=== PATIENT | female | born 1950 | race Caucasian/White ===

== ENCOUNTER → 2017-01-12 | Outpatient (CLI) | payer MEDICARE, OTHER ==
--- NOTE | 2017-01-12 14:38 | RAD ---
DATE: January 12, 2017 EXAM: MAMMO ANABELLE SCREENING BILATERAL HISTORY: Routine screening. COMPARISON: January 06, 2016. January 02, 2015. August 03, 2013. TECHNIQUE: 2D digital CC and MLO views were obtained. 3D tomosynthesis imaging was performed in the CC and MLO projections. This study was interpreted with the benefit of Computerized Aided Detection (CAD). FINDINGS: The breast parenchyma demonstrates scattered fibroglandular densities, category B. There is no worrisome mass or area of architectural distortion. There are a few benign-appearing calcifications, stable. IMPRESSION: Stable mammogram with benign findings. BI-RADS CATEGORY: 2 BENIGN FINDING RECOMMENDED FOLLOW-UP: 12M 12 MONTH FOLLOW-UP PQRS compliance statement: Patient information was entered into a reminder system with a target due date of January 12, 2018 for the next mammogram. Mammography is a sensitive method for finding small breast cancers, but it does not detect them all and is not a substitute for careful clinical examination. A negative mammogram does not negate a clinically suspicious finding and should not result in delay in biopsying a clinically suspicious abnormality. "Our facility is accredited by the [employer] Mammography [employer]."
== END | disposition home or self-care (01) ==
LOC: MAMMO 11:24
PROVIDERS: ATTEND Physician Assistant Medical
DX: Z12.31 Encounter for screening mammogram for malignant neoplasm of breast (principal)
CPT/HCPCS: 77063; G0202; 77067

== ENCOUNTER → 2018-01-25 | Outpatient (CLI) | payer MEDICARE, OTHER ==
--- NOTE | 2018-01-25 13:07 | RAD ---
DATE: 01/25/2018 EXAM: DIGITAL SCREEN BILAT W/CAD HISTORY: Routine Screening COMPARISON: Previous mammogram from 2017 and 2016. This study was interpreted with the benefit of Computerized Aided Detection (CAD). FINDINGS: Breast Density: SCATTERED The breast parenchyma shows scattered fibroglandular densities. Breast parenchyma level B. The skin and nipples are within normal limits. No suspicious calcifications, spiculated mass or area of architectural distortion. Benign left breast calcifications. IMPRESSION: No mammographic evidence of malignancy. Stable mammogram. BI-RADS CATEGORY: 2 BENIGN FINDING(S) RECOMMENDED FOLLOW-UP: 12M 12 MONTH FOLLOW-UP PQRS compliance statement: Patient information was entered into a reminder system with a target due date for the next mammogram. Mammography is a sensitive method for finding small breast cancers, but it does not detect them all and is not a substitute for careful clinical examination. A negative mammogram does not negate a clinically suspicious finding and should not result in delay in biopsying a clinically suspicious abnormality. "Our facility is accredited by the [employer] Mammography [employer]."
== END | disposition home or self-care (01) ==
LOC: MAMMO 11:03
PROVIDERS: ATTEND Physician Assistant Medical
DX: Z12.31 Encounter for screening mammogram for malignant neoplasm of breast (principal)
CPT/HCPCS: 77067

== ENCOUNTER → 2018-02-14 | Outpatient (CLI) | payer MEDICARE ==
--- NOTE | 2018-02-14 14:41 | RAD ---
MR#: [id number] Date of Study: 02/14/2018 Ordering Physician: SUHAIL HOYOS, Referring Physician: SUHAIL HOYOS Tech: Daria Costa RDMS, RVT, RTR APPROVED REPORT Patient Location: OUT-PATIENT Indications Grayscale images of the right common carotid, external carotid vessels reveal no significant obstruct yanira plaque. At the level of the ostium of the internal carotid artery/distal bulb on the right side t here is a greater than 50% stenosis identified on grayscale images. This appears to be a soft plaque. Spectral waveforms in the right common carotid and external carotid vessels are grossly within leslie l limits. Spectral waveforms and velocities in the proximal right internal carotid artery are signifi cantly elevated at 418 cm/s with turbulence noted. The ICA to CCA ratio is significantly elevated at 6.6. The right vertebral velocity is antegrade in nature and within normal limits. On the left the common carotid, internal and external carotid grayscale images do not reveal any sign ificant obstructive plaque. Spectral waveforms, velocities are grossly within normal limits. The vert ebral velocities are antegrade. Normal ICA to CCA ratios are noted on the left side. Critical Notification Critical Value: No <Conclusion> 1. Greater than 70% right ICA stenosis by ultrasound criteria. Signed by : Bryan Kidd, Electronically Approved : 02/14/2018 14:40:26
== END | disposition home or self-care (01) ==
LOC: US 09:50
PROVIDERS: ATTEND Internal Medicine Cardiovascular Disease
DX: I65.21 Occlusion and stenosis of right carotid artery (principal)
CPT/HCPCS: 93880

== ENCOUNTER → 2018-02-21 | Outpatient (CLI) | payer MEDICARE ==
[~2018-02-21] MED LIST: IOHEXOL 300 MG/ML 75 ML VIAL. IV ONE
[2018-02-21 09:32] LABS: CREATININE 0.7 mg/dL (0.6-1.0); GFR 83.2
--- NOTE | 2018-02-21 13:08 | CARD ---
MR#: [id number] Date of Study: 02/21/2018 Ordering Physician: SUHAIL HOUGH, Referring Physician: SUHAIL HOUGH, Tech: ZULY Gilliam APPROVED REPORT EXAM: Two-dimensional and M-mode echocardiogram with Doppler and color Doppler. Other Information Quality : Fair INDICATION Carotid Stenosis 2D DIMENSIONS Left Atrium(2D)3.0 (1.6-4.0cm)IVSd0.7 (0.7-1.1cm) Aortic Root(2D)3.2 (2.0-3.7cm)LVDd4.4 (3.9-5.9cm) LVOT Diameter2.1 (1.8-2.4cm)PWd0.7 (0.7-1.1cm) LVDs2.7 (2.5-4.0cm)FS (%) 32.0 % SV61.8 mlLVEF(%)65.0 (>50%) Aortic Valve AoV Peak Dimitrios.124.9cm/Edith Peak GR.6.2mmHg LVOT Peak Dimitrios.84.0cm/sAVA (VMAX)2.28cm2 Mitral Valve MV E Lyypnavj82.2cm/sMV DECEL ZWVY429dd MV A Ubuhfmkf167.9cm/sE/A Ratio0.5 LEFT VENTRICLE The left ventricle is normal size. There is normal left ventricular wall thickness. The left ventricu lar systolic function is normal. The Ejection Fraction is 60-65%. There is normal LV segmental wall m otion. RIGHT VENTRICLE The right ventricle is normal size. There is normal right ventricular wall thickness. The right ventr icular systolic function is normal. ATRIA The left atrium size is normal. The right atrium size is normal. The interatrial septum is intact wit h no evidence for an atrial septal defect or patent foramen ovale as noted on 2-D or Doppler imaging. AORTIC VALVE The aortic valve is trileaflet. Doppler and Color Flow revealed no significant aortic regurgitation. There is no significant aortic valvular stenosis. MITRAL VALVE There is no evidence of mitral valve prolapse. There is no mitral valve stenosis. Doppler and Color-f low revealed trace mitral regurgitation. TRICUSPID VALVE Doppler and Color Flow revealed trace tricuspid regurgitation. There is no tricuspid valve stenosis. PULMONIC VALVE The pulmonic valve is not well visualized. Doppler and Color Flow revealed trace pulmonic valvular re gurgitation. There is no pulmonic valvular stenosis. GREAT VESSELS The aortic root is normal in size. The IVC is normal in size and collapses >50% with inspiration. PERICARDIAL EFFUSION There is no pleural effusion. There is no evidence of significant pericardial effusion. Critical Notification Critical Value: No <Conclusion> The left ventricular systolic function is normal. The Ejection Fraction is 60-65%. There is normal LV segmental wall motion. Trace mitral regurgitation. Trace tricuspid regurgitation. There is no evidence of significant pericardial effusion. Signed by : Suhail Hough, Electronically Approved : 02/21/2018 13:07:43
--- NOTE | 2018-02-21 17:41 | RAD ---
CTA of the neck with contrast 02/21/2018 Clinical history: Right carotid stenosis. Technique: After the intravenous administration 75 cc of Omnipaque 300, contiguous, 0.625 mm axial sections were obtained through the upper chest and neck. Multiplanar 3-D MIP and volume rendered 3-D reconstructed images were obtained. One or more of the following individualized dose reduction techniques were utilized for this study: 1. Automated exposure control. 2. Adjustment of the mA and/or kV according to patient size. 3. Use of iterative reconstruction technique. Findings: Comparison is made to the patient's carotid ultrasound dated 02/14/2018. Mild to moderate scattered atherosclerotic plaque formation is seen involving the thoracic aortic arch and its branches. There is a common origin of the brachiocephalic and left common carotid artery. This is a normal variation. This origin is patent. The origin of the left subclavian artery from the thoracic aortic arch is patent. The origins of the right common carotid artery and both vertebral arteries are patent. Mild to moderate atheromatous/atherosclerotic plaque formation is seen involving both carotid bifurcations and proximal internal carotid arteries, right greater than left. A high-grade stenosis which is estimated to be at least 90 percent using NASCET criteria is seen involving the origin of the right internal carotid artery. This measures 6 mm in length. No hemodynamically significant stenosis is seen involving the left carotid bifurcation. The left internal carotid artery is tortuous. No hemodynamically significant stenosis is seen. The vertebral arteries are codominant. Both vertebral arteries demonstrate normal antegrade flow. No area stenosis or occlusion is seen. No acute soft tissue abnormality is seen involving the neck. Mild mucosal thickening is involving left maxillary sinus. Degenerative changes are seen involving the uncovertebral and facet joints throughout the cervical spine. IMPRESSION: Mild to moderate atheromatous/atherosclerotic plaque formation is seen involving both carotid bifurcations. A 90 percent stenosis is seen involving the proximal right internal carotid artery at its origin. No additional area of stenosis or occlusion is seen. Stenosis calculation for CTA are based on measurement of the distal internal carotid artery diameter in accordance with the NASCET methodology. Electronically signed by: Vincent Dang MD (02/21/2018 5:37 PM) [id number]
== END | disposition home or self-care (01) ==
LOC: ECHO 07:55
PROVIDERS: ATTEND Internal Medicine Cardiovascular Disease
DX: I65.21 Occlusion and stenosis of right carotid artery (principal)
CPT/HCPCS: 36415; 70498; 82565; 93306; Q9967

== ENCOUNTER → 2018-06-23 | Outpatient (CLI) | payer MEDICARE ==
[2018-06-23 09:40] LABS: ALBUMIN 3.8 g/dL (3.4-5.0); CALCIUM 9.3 mg/dL (8.5-10.1); CREATININE 0.7 mg/dL (0.6-1.0); GFR 83.2; POTASSIUM 4.4 mmol/L (3.5-5.1); TOTAL BILIRUBIN 0.4 mg/dL (0.2-1.0); TOTAL PROTEIN 7.6 g/dL (6.4-8.2)
--- NOTE | 2018-06-23 14:22 | RAD ---
EXAM: Dual energy x-ray absorptiometry (DEXA). HISTORY: Postmenopausal female presents for osteoporosis screening. COMPARISON: 02/25/2004. TECHNIQUE: Dual energy x-ray absorptiometry of the lumbar spine and right hip was performed. Calculation of bone mineral density based on standard deviations above or below the expected young adult normal value (T-score) was completed. FINDINGS: The average bone mineral density in the 1st through 4th lumbar vertebrae is 1.094 g/cmxcm, corresponding with a T-score of -0.7. There has been a 6.8 percent decrease in density of the lumbar spine compared to the baseline exam dated 02/25/2004. The average total bone mineral density in the right hip is 0.990 g/cmxcm, corresponding with a T-score of 0.3. There has been a 2.0 percent decrease in density of the right hip compared to the baseline study dated 02/25/2004. IMPRESSION: Normal bone mineral density. Note: Definitions established by the World Health Organization: 1. Normal: T-score is -1.0 or above. 2. Osteopenia: T-score is between -1.0 and -2.5 . 3. Osteoporosis: T-score is -2.5 or below. Electronically signed by: Yamilka Curran MD (06/23/2018 2:19 PM) [facility]
== END | disposition home or self-care (01) ==
LOC: DXRAD 08:14
PROVIDERS: ATTEND Physician Assistant Medical
DX: Z13.820 Encounter for screening for osteoporosis (principal); E78.4 Other hyperlipidemia; I10 Essential (primary) hypertension; Z78.0 Asymptomatic menopausal state
CPT/HCPCS: 36415; 77080; 80053; 80061

== ENCOUNTER → 2019-02-08 | Outpatient (CLI) | payer MEDICARE ==
--- NOTE | 2019-02-08 12:54 | RAD ---
DATE: 02/08/2019 EXAM: MAMMO ANABELLE SCREENING BILATERAL HISTORY: Routine screening COMPARISON: 01/02/2015, 01/06/2016, 01/25/2018 mammographic exams This study was interpreted with the benefit of Computerized Aided Detection (CAD). Breast Density: HETERO The breast parenchyma is heterogenously dense, which could reduce sensitivity of mammography. Breast parenchyma level C. FINDINGS: Benign axillary lymph nodes are present. Benign calcifications are present. No dominant mass or distortion. IMPRESSION: No suspicious change. BI-RADS CATEGORY: 1 NEGATIVE RECOMMENDED FOLLOW-UP: 12M 12 MONTH FOLLOW-UP PQRS compliance statement: Patient information was entered into a reminder system with a target due date in 1 year for the next mammogram. Mammography is a sensitive method for finding small breast cancers, but it does not detect them all and is not a substitute for careful clinical examination. A negative mammogram does not negate a clinically suspicious finding and should not result in delay in biopsying a clinically suspicious abnormality. "Our facility is accredited by the [employer] Mammography [employer]."
== END | disposition home or self-care (01) ==
LOC: MAMMO 10:43
PROVIDERS: ATTEND Physician Assistant Medical
DX: Z12.31 Encounter for screening mammogram for malignant neoplasm of breast (principal); R92.8 Other abnormal and inconclusive findings on diagnostic imaging of breast
CPT/HCPCS: 77063; 77067

== ENCOUNTER → 2020-10-21 | Outpatient (CLI) | payer MEDICARE ==
--- NOTE | 2020-10-22 13:06 | RAD ---
DATE: 10/21/2020 10:50 AM EXAM: MAMMO ANABELLE SCREENING BILATERAL HISTORY: Screening COMPARISON: 02/08/2019 Bilateral CC and MLO views of the breasts were performed. Bilateral breast tomosynthesis was performed in CC and MLO projections. This study was interpreted with the benefit of Computerized Aided Detection (CAD). FINDINGS: Breast Density: HETERO The breast parenchyma Is heterogeneously dense, which could reduce sensitivity of mammography. Breast parenchyma level C No suspicious masses, microcalcifications or architectural distortion is present to suggest malignancy in either breast. The visualized axillae are unremarkable. IMPRESSION: No mammographic evidence of malignancy. BI-RADS CATEGORY: 1 NEGATIVE RECOMMENDED FOLLOW-UP: 12M 12 MONTH FOLLOW-UP Annual screening mammography is recommended, unless clinically indicated sooner based on symptoms or change in physical exam. PQRS compliance statement: Patient information was entered into a reminder system with a target due date for the next mammogram. Mammography is a sensitive method for finding small breast cancers, but it does not detect them all and is not a substitute for careful clinical examination. A negative mammogram does not negate a clinically suspicious finding and should not result in delay in biopsying a clinically suspicious abnormality. "Our facility is accredited by the [employer] Mammography [employer]."
== END ==
LOC: MAMMO 09:59
PROVIDERS: ATTEND Physician Assistant Medical
DX: Z12.31 Encounter for screening mammogram for malignant neoplasm of breast (principal)
CPT/HCPCS: 77063; 77067

== ENCOUNTER → 2021-07-10 | Outpatient (CLI) | payer MEDICARE ==
--- NOTE | 2021-07-10 09:19 | RAD ---
Three-view right hand dated 07/10/2021. No comparison available. CLINICAL INDICATION: Pain. FINDINGS: 3 views right hand show normal bony alignment. There is an avulsion fracture at the dorsal aspect of the base of the fifth distal phalanx, mildly distracted. Overlying soft tissue swelling. No additiona l fractures are seen. IMPRESSION: 1. Dorsal plate avulsion at the distal phalanx small finger Electronically signed by: Amari Powell MD (07/10/2021 9:17 AM) [id number]
== END ==
LOC: RAD 08:46
PROVIDERS: ATTEND Nurse Practitioner Family
DX: S69.91XA Unspecified injury of right wrist, hand and finger(s), initial encounter (principal); S62.636A Displaced fracture of distal phalanx of right little finger, initial encounter for closed fracture; M79.89 Other specified soft tissue disorders; X58.XXXA Exposure to other specified factors, initial encounter; Y93.89 Activity, other specified; Y92.89 Other specified places as the place of occurrence of the external cause; Y99.8 Other external cause status
CPT/HCPCS: 73130

== ENCOUNTER → 2021-10-19 | Outpatient (CLI) | payer MEDICARE ==
--- NOTE | 2021-10-19 12:24 | RAD ---
BILATERAL DIGITAL SCREENING 2-D AND 3-D MAMMOGRAM INDICATION: Routine screening. Prior exams including one of 10/21/2020. COMPARISON: Interpretation was made using CAD. FINDINGS: Breast Density: B RIGHT BREAST: No suspicious masses, calcifications or areas of architectural distortion are seen. LEFT BREAST: No suspicious masses, calcifications or areas of architectural distortion are seen. IMPRESSION: 1. No imaging evidence of malignancy. ASSESSMENT: BI-RADS 1. Negative. RECOMMENDATION: Routine annual screening mammogram. The facility will notify the patient of the results via mail. Patient information will be entered int o the mammography reminder system with a target recall date for the next mammogram. A reminder letter will be generated by the facility. Electronically signed by: Abel Pinedo Jr., MD (10/19/2021 12:22 PM) [id number]
== END ==
LOC: MAMMO 11:12
PROVIDERS: ATTEND Physician Assistant Medical
DX: Z12.31 Encounter for screening mammogram for malignant neoplasm of breast (principal)
CPT/HCPCS: 77063; 77067